=== PATIENT | female | born 2000 | race Caucasian/White ===

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

== ENCOUNTER 2019-01-17 19:40 | Emergency (ER) | payer MEDICAID ==
[~2019-01-17] VITALS: Ht 165.1 cm; Wt 61.0 kg
[2019-01-17 19:42] VITALS: BP 117/73
[2019-01-17 21:19] LABS: URINE HCG NEGATIVE (NEG)
[2019-01-17 21:27] LABS: CLARITY,URINE SLIGHTLY CLOUDY (Clear); COLOR,URINE YELLOW (Yellow); GLUCOSE, URINE NEGATIVE (Neg); KETONES,URINE NEGATIVE (Neg); LEUKOCYTE ESTERASE ,URINE NEGATIVE (Neg); NITRITES, URINE NEGATIVE (Neg); OCCULT BLOOD,URINE NEGATIVE (Neg); PROTEIN,URINE NEGATIVE (Neg); UROBILINOGEN,URINE 0.2 E.U/dL (0.2-1.0)
[2019-01-17 21:28] LABS: UA COLLECTION TYPE CLN CATCH MIDSTREAM
[2019-01-17 21:39] LABS: AMORPHOUS PHOSPHATES 4+; BACTERIA,URINE FEW /HPF (Neg); MUCUS STRANDS FEW /LPF (Neg); RBC,URINE 0-2 /HPF (0-2); SQUAMOUS EPITHELIAL CELL,UR MANY /LPF (FEW); WBC,URINE 0-4 /HPF (0-4)
--- NOTE | 2019-01-17 21:40 | NUR ---
Pt states she has just been really tired. 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 Encouraged her to get good rest in between but to balance out working hard with plenty of rest and nutrition and fluids.
== END 2019-01-17 21:42 | disposition home or self-care (01) ==
LOC: ER 19:40
DX: R53.83 Other fatigue (principal); R19.7 Diarrhea, unspecified; R35.0 Frequency of micturition; J02.9 Acute pharyngitis, unspecified; R51 Headache; G89.29 Other chronic pain; F17.200 Nicotine dependence, unspecified, uncomplicated; F12.90 Cannabis use, unspecified, uncomplicated; Z79.899 Other long term (current) drug therapy; Z60.2 Problems related to living alone; Z59.0 Homelessness
CPT/HCPCS: 81001; 81025; 99283

== ENCOUNTER 2019-10-22 22:16 | Emergency (ER) | payer OTHER, MEDICAID ==
[~2019-10-22] VITALS: Ht 152.4 cm; Wt 60.5 kg
[2019-10-22 22:19] VITALS: BP 124/78
[2019-10-22] MEDS ORDERED: orphenadrine citrate 60mg/2ml inj. IM ONE (23:00)
[2019-10-22] MEDS ORDERED: ketorolac trometh. 30mg/ml inj. IM ONE (23:00)
[2019-10-22] MEDS ORDERED: ORPH100T2 PO (23:01)
[2019-10-22] MEDS ORDERED: HYDR-4353 PO (23:01)
== END 2019-10-22 23:18 | disposition home or self-care (01) ==
LOC: ER 22:17
DX: M54.6 Pain in thoracic spine (principal); M62.830 Muscle spasm of back; G89.29 Other chronic pain; F12.90 Cannabis use, unspecified, uncomplicated; F17.200 Nicotine dependence, unspecified, uncomplicated; Z59.0 Homelessness; Z79.899 Other long term (current) drug therapy
CPT/HCPCS: 96372; 99283; J1885; J2360

== ENCOUNTER 2022-01-01 23:53 | Emergency (ER) | payer MEDICAID, OTHER ==
[~2022-01-01 23:53] MED LIST changes: +ORPH100T2 PO; +PANT20TA18 PO; -PANT20TA3 PO
== END 2022-01-02 01:52 | disposition left against medical advice (07) ==
LOC: ER 23:54
DX: F41.9 Anxiety disorder, unspecified (principal); Z53.21 Procedure and treatment not carried out due to patient leaving prior to being seen by health care provider